=== PATIENT | female | born 1960 | race Caucasian/White ===

== ENCOUNTER 2019-04-13 17:40 | Emergency (ER) | payer OTHER ==
[~2019-04-13] VITALS: Ht 160 cm; Wt 86.0 kg
--- NOTE | 2019-04-13 18:20 | NUR ---
PT TO CT, WILL START IV AND GIVE MEDS WHEN PT RETURNS
[2019-04-13] MEDS ORDERED: DIPHENHYDRAMINE 50 MG/ML, 1ML IVPush ONE (18:30)
[2019-04-13] MEDS ORDERED: SUMATRIPTAN 6MG/0.5ML SQ ONE ×2 (18:30→18:56)
[2019-04-13] MEDS ORDERED: PROCHLORPERAZINE 5 MG/ML, 2ML IVPush ONE (18:30)
[2019-04-13] MEDS ORDERED: SODIUM CHLORIDE FLUSH 10ML SYR IVF ONE (18:30)
[2019-04-13] MEDS ORDERED: KETOROLAC 30 MG/1 ML IVPush ONE ×2 (18:30)
--- NOTE | 2019-04-13 18:47 | NUR ---
PT RESTING IN BED C/O CONTINUED HEADACHE AND NAUSEA. AWAITING RECHECK FROM MD. FAMILY AT BEDSIDE. SIDE RAIL UP X 2, CALL LIGHT IN REACH.
[2019-04-13] MEDS ORDERED: DIPHENHYDRAMINE 50 MG/ML, 1ML ONE (18:56)
[2019-04-13] MEDS ORDERED: KETOROLAC 30 MG/1 ML ONE (18:56)
[2019-04-13] MEDS ORDERED: PROCHLORPERAZINE 5 MG/ML, 2ML ONE (18:56)
--- NOTE | 2019-04-13 19:47 | NUR ---
PT PREPARED FOR DISCHARGE, PT STATES THAT SHE IS FEELING BETTER, IS AWARE OF THE USE OF MEDICATIONS AND ALSO WELL VERSED IN THIS PT HAS SUFFERED FROM MIGRAINES FOR MANY MANY YEARS. IV DC AT DISCHARGEM, WORK NOTE PROVIDED
[2019-04-13 19:48] VITALS: BP 157/98
== END 2019-04-13 20:00 | disposition home or self-care (01) ==
LOC: ED 17:58
DX: G43.001 Migraine without aura, not intractable, with status migrainosus (principal); Z90.49 Acquired absence of other specified parts of digestive tract; Z85.830 Personal history of malignant neoplasm of bone
CPT/HCPCS: 70450; 96372; 96374; 96375; 99284; J0780; J1200; J1885; J3030

== ENCOUNTER 2019-12-29 16:04 | Emergency (ER) | payer BC, OTHER ==
[~2019-12-29] VITALS: Ht 160 cm; Wt 83.4 kg
[2019-12-29] MEDS ORDERED: LISINOPRIL 20 MG TABLET PO ONE (16:30)
[2019-12-29] MEDS ORDERED: LISINOPRIL 20 MG TABLET ONE (16:52)
[2019-12-29 17:05] LABS: ANION GAP 4 mmol/L (5-15); CALCIUM 9.2 mg/dL (8.5-10.1); CHLORIDE 112 mmol/L (98-107)
[2019-12-29 17:30] VITALS: BP 167/92
== END 2019-12-29 17:32 | disposition home or self-care (01) ==
LOC: ED 16:25
DX: I10 Essential (primary) hypertension (principal); R94.31 Abnormal electrocardiogram [ECG] [EKG]
CPT/HCPCS: 36415; 80048; 93005; 99284